=== PATIENT | male | born 1930 | race Caucasian/White ===

== ENCOUNTER → 2016-11-27 | Outpatient (REF) | payer MEDICARE, OTHER ==
[~2016-11-27] MED LIST: ASPI325T PO; AUGM875T27 PO; AZEL0.1S3; FURO20TA2 PO; GLIM4TAB PO; INVO100T PO; ISOS30TA4 PO; LISI10TA4 PO; METF500T4 PO; PRIL20CA9 PO; PRIL40CA PO
[2016-11-27 16:37] LABS: PERCENT SATURATION 25.4 % (19.7-37.4)
== END ==
LOC: M LAB REF 12:16
PROVIDERS: ATTEND Internal Medicine
DX: D51.8 Other vitamin B12 deficiency anemias (principal)

== ENCOUNTER → 2017-04-29 | Outpatient (REF) | payer MEDICARE, OTHER ==
[~2017-04-29] MED LIST changes: -AUGM875T27 PO; +AUGM875T28 PO
== END ==
LOC: M LAB REF 17:10
PROVIDERS: ATTEND Internal Medicine
DX: D51.8 Other vitamin B12 deficiency anemias (principal)